=== PATIENT | female | born 1960 | race Two or more races ===

== ENCOUNTER 2022-07-24 10:39 | Outpatient (CLI) | payer OTHER | END 2022-07-24 10:43 | disposition home or self-care (01) | LOC: SONOGRAMA 10:39 | PROVIDERS: ATTEND Pathology Anatomic Pathology & Clinical Pathology | DX: E04.1 Nontoxic single thyroid nodule (principal); D34 Benign neoplasm of thyroid gland ==

== ENCOUNTER 2023-05-06 14:28 | Outpatient (CLI) | payer OTHER | END 2023-05-06 14:40 | disposition home or self-care (01) | LOC: SONOGRAMA 14:28 | PROVIDERS: ATTEND Internal Medicine Endocrinology, Diabetes & Metabolism | DX: E04.8 Other specified nontoxic goiter (principal) ==